=== PATIENT | female | born 1940 | race Caucasian/White ===

== ENCOUNTER 2017-08-31 13:47 | Day surgery (SDC) | payer MEDICARE ==
[2017-08-31] MEDS ORDERED: Fentanyl 100 MCG/2 ML VIAL ONE (14:48)
[2017-08-31 14:49] LABS: #Lymphocytes 1.1 thou/uL (1.20-3.40); #Monocytes 0.4 thou/uL (0.11-0.59); #Neutrophils 6.1 thou/uL (1.40-6.50); %Basophils 0.3 % (0.0-1.0); %Eosinophils 0.2 % (0.0-10.0); %Lymphocytes 14.4 % (21.0-51.0); %Monocytes 5.7 % (0.0-10.0); %Neutrophils 79.4 % (42.0-75.0); Mean Corpuscular HGB CONC 33.4 g/dL (32.0-36.0); Mean Corpuscular Hemoglobin 32.5 pg (27.0-31.0); Mean Corpuscular Volume 97.4 fl (81.0-99.0); Mean Platelet Volume 9.9 fL (7.4-10.4); Platelet Count 236 thou/uL (130-400); RBC Distribution Width 12.1 % (11.5-14.5); Red Blood Cell (RBC) Count 4.32 mill/uL (4.20-5.40); White Blood Cell (WBC) Count 7.7 thou/uL (4.8-10.8)
[2017-08-31] MEDS ORDERED: Betamet Acet/Betamet Na Ph 30 MG/5 ML VIAL ONE (14:53)
[2017-08-31] MEDS ORDERED: Bacitracin Zinc Ointment 30 gm TUBE ONE (14:53)
[2017-08-31] MEDS ORDERED: Bupivacaine PF 0.5% 30 ML VIAL ONE (14:53)
[2017-08-31] MEDS ORDERED: Sodium Chloride 0.9% 10 ML ONE (14:54)
[2017-08-31 15:09] LABS: Anion Gap 12 mmol/L (10-20); BUN (Urea Nitrogen) 14 mg/dL (9.8-20.1); Calc. Creatinine Clearance 0 mL/min (70-130); Calcium 10.7 mg/dL (7.8-10.44); Carbon Dioxide 25 mmol/L (23-31); Chloride 106 mmol/L (98-107); Estimated GFR-MDRD 71; Glucose 108 mg/dL (83-110); Sodium 139 mmol/L (136-145)
[2017-08-31] MEDS ORDERED: Clindamycin/D5W 600 mg/50 ml Premix Bag ONE (15:10)
--- NOTE | 2017-08-31 15:23 | RAD ---
PORTABLE UPRIGHT FRONTAL CHEST RADIOGRAPH: Date: 08-31-17 Comparison: None. History: Pre-operative patient. FINDINGS: No pneumothorax, pleural fluid, focal consolidation or alveolar edema. Heart and mediastinal contours demonstrate mild prominence of the cardiac silhouette. IMPRESSION: No acute findings. POS: [facility]
[2017-08-31] MEDS ORDERED: Dexamethasone 20 MG/5 ML VIAL ONE (15:24)
[2017-08-31] MEDS ORDERED: Propofol 200 MG/20 ML VIAL ONE (15:24)
[2017-08-31] MEDS ORDERED: Ondansetron HCl/PF 4 MG/2 ML Vial ONE (15:24)
[2017-08-31] MEDS ORDERED: Ketorolac Tromethamine 30 MG/ML VIAL ONE ×2 (15:24→19:37)
[2017-08-31] MEDS ORDERED: Lidocaine 1% PF 5 ML VIAL ONE (15:24)
[2017-08-31] MEDS ORDERED: Midazolam HCl 2 mg/2 ml Vial ONE (19:09)
--- NOTE | 2017-09-01 06:42 | OP ---
DATE OF SURGERY: 08/31/2017. PREOPERATIVE DIAGNOSIS: Left small finger open wound with flexor digitorum superficialis and flexor digitorum profundus laceration. FINDINGS: 1. 100% flexor digitorum superficialis laceration with segmental loss on the ulnar side of almost 1 cm making it impossible to perform excellent repair of this half of that tendon. 2. 2 cm long sagittal plane oblique laceration of the tendon, flexor digitorum profundus. 3. No laceration of the digital nerve. Only a small amount of sheath irritation seen on the ulnar a nd radial aspect, but no laceration, therefore no repair. PROCEDURES PERFORMED: 1. Neuroplasty of ulnar digital nerve, left small finger. 2. Neuroplasty of radial digital nerve, left small finger. 3. Debridement of wound, [address] level, did not include bone. 4. Flexor digitorum profundus repair. 5. Flexor digitorum superficialis repair. 6. Reconstruction, A2 almita which had greater than 90%-95% laceration. The laceration began at thi s level and went distally. The almita was reconstructed using palmaris longus graft. 7. Intact circulation. INDICATION: The patient with almost 6-day-old laceration and complete lack of flexion of any portion of the small finger to include interphalangeal joints. She had 2 stitches placed in wound, so it wa s technically still open and for this reason, we felt repair was indicated as soon as possible, becau se it is now almost one week since the injury. TOURNIQUET TIME: 120 minutes. BLOOD LOSS: 20 mL. INJECTABLE: Total of 20 mL of 0.5% Marcaine divided equally between . DESCRIPTION OF PROCEDURE: After successful general LMA technique, the limb was prepped and draped. The patient had anesthesia performed by [facility] and did not have a block preop. We then exsanguinated the limb as it clearly be seen that the other digits had normal flexion attitud e and the small finger completely extended with the patient in anesthetic position. We had an L-shaped 2-cm incision which extended 1 cm distal, 2 cm proximal dissected through and init ially what we found on inspection with the neuroplasty of the digital nerves. Radial and ulnar was intact. There was only small amount of fraying of the sheath on the radial side. Neurovascular bundle was intact with the vascular bundle on the ulnar side completely intact. We then began dissection and found that the flexor digitorum profundus and superficialis were lacerat ed and the tendon had retracted into the palm, so we made a separate incision that we then connected to the proximal aspect of the proximal phalanx incision and visualized the flexor digitorum profundus and superficialis. We then passed these tendons into the field between the A2 and A3 pulleys where we saw a sheath laceration of 90%-95% loss beginning at the laceration proximal aspect of the flexor digitorum profundus of the A1 almita. Thus, she would need either repair or reconstruction at the end of the procedure. We then prepared the tendons. The segmental loss on the ulnar aspect of the flexor digitorum superfi cialis prevented repair of this limb, so we ulnar repaired the limb back to the radial, which was exc ellent and performed with 4-0 Prolene using a grasping stitch of modified Adelaida and a running 6-0 c hromic. Then, once we were done with this, we now saw that we could bring the finger into flexion of 60 degre es and easily now have enough of repair from the flexor digitorum superficialis to do a modified 6-st rand repair on the long sagittal plane longitudinal laceration. This required for us using some 6-0 Prolene at each corner to align the tendon and then we did individual has modified Son, so that w e now had multiple strands crossing the laceration site. This included 2 modified Son distal and 2 modified proximally. This gave excellent tension and there was no gap formation just with the gra sping stitch, but with the 6-0 now tied and then we used a circumferential running suture of the 6-0, there was excellent ability to extend the finger without loss of tendon integrity. We then prepared for release of tourniquet. Tourniquet was released. Hemostasis was obtained. We then visualized t hat we could not repair the pulleys back together, so we then harvested the palmaris longus sparing t he palmar cutaneous branch and the median nerve itself. We took this, and did an interwoven reconstr uction suture with 4-0 Prolene. Hemostasis was obtained. We closed the epidermis with interrupted 4 -0 nylon simple pattern without any undue tension. The patient left the operating room without evide nce of anesthetic or operative complication.
== END 2017-08-31 20:30 | disposition home or self-care (01) ==
LOC: SDC 13:47
PROVIDERS: ATTEND Orthopaedic Surgery Hand Surgery
PROC: 0LQ80ZZ Repair Left Hand Tendon, Open Approach (ICD-10-PCS; principal; 2017-08-31)
PROC: 0LQ80ZZ Repair Left Hand Tendon, Open Approach (ICD-10-PCS; 2017-08-31)
PROC: 01Q60ZZ Repair Radial Nerve, Open Approach (ICD-10-PCS; 2017-08-31)
PROC: 01Q40ZZ Repair Ulnar Nerve, Open Approach (ICD-10-PCS; 2017-08-31)
DX: S66.127A Laceration of flexor muscle, fascia and tendon of left little finger at wrist and hand level, initial encounter (principal); M19.90 Unspecified osteoarthritis, unspecified site; Z82.49 Family history of ischemic heart disease and other diseases of the circulatory system; Z88.2 Allergy status to sulfonamides; Z88.8 Allergy status to other drugs, medicaments and biological substances; Z98.890 Other specified postprocedural states
CPT/HCPCS: 71045; 80048; 85025; 93005; 93010; 96372; A4216; J0702; J1100; J1885; J2001; J2250; J2405; J2704; J3010; J3490; S0020